=== PATIENT | male | born 1960 | race Caucasian/White ===

== ENCOUNTER 2016-09-06 14:55 | Emergency (ER) | payer OTHER ==
[~2016-09-06] VITALS: Ht 170.2 cm; Wt 95.0 kg
[~2016-09-06 14:55] MED LIST: AMLODIPINE BESY10 MG PO; ASPIR 8181 M1 PO; CATAPRES0.2 MG PO; CRESTOR10 MG PO; FISH OIL500 MG PO; LISINOPRIL10 MG PO; NAPROSYN500 MG PO; NORVASC10 MG PO; PREDNISONE20 MG PO; PRINIVIL10 MG PO; SALINE EYE; SIMVASTATIN20 MG PO; ST. JOSEPH ASPI81 MG PO
[2016-09-06 15:52] LABS: ADD MIUA? YES; BILIRUBIN NEGATIVE; BLOOD NEGATIVE; COLOR YELLOW ((YELLOW)); GLUCOSE (STRIP) 150; KETONES 5; LEUKOCYTES NEGATIVE; NITRITE NEGATIVE; PROTEIN (STRIP) 100; SPECIFIC GRAVITY 1.029 (1.000-1.030)
[2016-09-06 15:52] LABS: HEMATOCRIT 51.5 % (38.0-50.0); MCH 28.3 PG (29.0-34.0); MCHC 33.2 G/DL (30.0-36.0); MCV 85.1 FL (86-99); MEAN PLAT.VOLUME 10.2 uM^3 (9.0-12.4); PLATELET COUNT 110 K/uL (156-360); RBC DIS.WIDTH-CV 13.2 % (11.8-14.6); RBC DIS.WIDTH-SD 40.8 % (39-53); RED BLOOD COUNT 6.05 M/uL (4.00-5.50); WHITE BLOOD COUNT 3.8 K/uL (4.1-10.2)
[2016-09-06 16:01] LABS: BACTERIA NONE SEEN /HPF; EPITHELIAL CELLS NONE SEEN /HPF; MUCUS TRACE /LPF; RED BLOOD CELLS 0-5 /HPF (0-5); UCUL ADDED? NO; WHITE BLOOD CELLS 0-5 /HPF (0-5)
[2016-09-06 16:06] LABS: CHLORIDE 103 mEq/L (99-109); SODIUM 136 mEq/L (136-147)
[2016-09-06 16:08] LABS: GLUCOSE 140 mg/dL (70-99)
[2016-09-06 16:10] LABS: ANION GAP 10 MEQ/L (2-14); TOTAL BILIRUBIN 0.9 mg/dL (0.0-1.0)
[2016-09-06 16:12] LABS: ALKALINE PHOSPHATASE 98 IU/L (3-129); GFR ESTIMATE (CALCULATED) > 59 mL/min/
[2016-09-06 16:13] LABS: UREA NITROGEN (BUN) 19 mg/dL (9-23)
[2016-09-06] MEDS ORDERED: ZOFRAN ODT4 MG PO (18:52)
[2016-09-06 19:42] VITALS: BP 144/78
== END 2016-09-06 19:42 | disposition home or self-care (01) ==
LOC: EME 14:55
DX: K52.9 Noninfective gastroenteritis and colitis, unspecified (principal); I10 Essential (primary) hypertension; Z87.442 Personal history of urinary calculi; Z86.73 Personal history of transient ischemic attack (TIA), and cerebral infarction without residual deficits; Z79.82 Long term (current) use of aspirin
CPT/HCPCS: 74020; 80053; 81003; 85027; 99281; 99284

== ENCOUNTER 2017-02-24 16:00 | Emergency (ER) | payer OTHER ==
[~2017-02-24] VITALS: Ht 172.7 cm; Wt 94.0 kg
[~2017-02-24 16:00] MED LIST changes: +ZOFRAN ODT4 MG PO
[2017-02-24] MEDS ORDERED: FLONASE16 G1 BOTH NARES (18:43)
[2017-02-24 18:59] VITALS: BP 168/98
== END 2017-02-24 19:01 | disposition home or self-care (01) ==
LOC: EME 16:00
DX: J01.90 Acute sinusitis, unspecified (principal); R07.9 Chest pain, unspecified; F41.9 Anxiety disorder, unspecified; I10 Essential (primary) hypertension; Z86.73 Personal history of transient ischemic attack (TIA), and cerebral infarction without residual deficits; Z87.442 Personal history of urinary calculi
CPT/HCPCS: 93005; 99281; 99283

== ENCOUNTER 2017-08-06 14:21 | Emergency (ER) | payer OTHER ==
[~2017-08-06] VITALS: Ht 170.2 cm; Wt 94.9 kg
[~2017-08-06 14:21] MED LIST changes: +FLONASE16 G1 BOTH NARES
[2017-08-06 16:52] LABS: HEMATOCRIT 48.1 % (38.0-50.0); HEMOGLOBIN 16.9 G/DL (12.5-16.6); MCH 29.8 PG (29.0-34.0); MCHC 35.1 G/DL (30.0-36.0); MCV 84.8 FL (86-99); PLATELET COUNT 117 K/uL (156-360); RBC DIS.WIDTH-CV 13.6 % (11.8-14.6); RBC DIS.WIDTH-SD 41.7 % (39-53); RED BLOOD COUNT 5.67 M/uL (4.00-5.50); WHITE BLOOD COUNT 6.9 K/uL (4.1-10.2)
[2017-08-06 17:04] LABS: CHLORIDE 103 mEq/L (99-109); POTASSIUM 4.1 mEq/L (3.7-5.4); SODIUM 135 mEq/L (136-147)
[2017-08-06 17:05] LABS: GLUCOSE 224 mg/dL (70-99)
[2017-08-06 17:09] LABS: GFR ESTIMATE (CALCULATED) > 59 mL/min/ (58.99-99999)
[2017-08-06 17:10] LABS: UREA NITROGEN (BUN) 20 mg/dL (9-23)
[2017-08-06 17:16] LABS: TROP-I INTERPRETATION NEGATIVE; TROPONIN-I < 0.01 ng/mL (0.0-0.30)
[2017-08-06 19:55] VITALS: BP 179/98
== END 2017-08-06 19:55 | disposition home or self-care (01) ==
LOC: EME 14:21
PROVIDERS: Physician Assistant Medical
DX: R07.9 Chest pain, unspecified (principal); R20.2 Paresthesia of skin; I10 Essential (primary) hypertension; Z86.73 Personal history of transient ischemic attack (TIA), and cerebral infarction without residual deficits; Z82.49 Family history of ischemic heart disease and other diseases of the circulatory system; F41.9 Anxiety disorder, unspecified; F32.9 Major depressive disorder, single episode, unspecified
CPT/HCPCS: 70450; 71046; 80048; 84484; 85027; 93005; 99281; 99285

== ENCOUNTER 2017-11-16 12:39 | Emergency (ER) | payer OTHER ==
[~2017-11-16] VITALS: Ht 175.3 cm; Wt 92.5 kg
[2017-11-16 15:05] VITALS: BP 165/90
== END 2017-11-16 15:05 | disposition home or self-care (01) ==
LOC: EME 12:39
DX: F32.9 Major depressive disorder, single episode, unspecified (principal); F41.9 Anxiety disorder, unspecified; I10 Essential (primary) hypertension; Z79.82 Long term (current) use of aspirin; Z86.73 Personal history of transient ischemic attack (TIA), and cerebral infarction without residual deficits; Z87.442 Personal history of urinary calculi; Z90.49 Acquired absence of other specified parts of digestive tract; Z88.8 Allergy status to other drugs, medicaments and biological substances
CPT/HCPCS: 80053; 81003; 85027; 90839; 99281; 99284; G0480

== ENCOUNTER 2017-11-24 07:53 | Emergency (ER) | payer OTHER ==
[~2017-11-24] VITALS: Ht 172.7 cm; Wt 92.7 kg
[2017-11-24 08:41] LABS: BASOPHIL (%) 0.6 % (0-1); EOSINOPHIL (%) 1.5 % (0-5); EOSINOPHIL COUNT 0.1 K/uL (0-0.3); HEMATOCRIT 48.1 % (38.0-50.0); HEMOGLOBIN 16.4 G/DL (12.5-16.6); IMMATURE GRANULOCYTE (%) 0.6 % (0.0-0.7); LYMPHOCYTE (%) 19.4 % (15-42); MCH 29.4 PG (29.0-34.0); MCHC 34.1 G/DL (30.0-36.0); MCV 86.2 FL (86-99); MONOCYTE (%) 7.1 % (3-12); MONOCYTE COUNT 0.4 K/uL (0-0.8); NEUTROPHIL (%) 70.8 % (45-76); NEUTROPHIL COUNT 3.8 K/uL (1.8-6.4); PLATELET COUNT 116 K/uL (156-360); RBC DIS.WIDTH-CV 13.4 % (11.8-14.6); RBC DIS.WIDTH-SD 41.4 % (39-53); RED BLOOD COUNT 5.58 M/uL (4.00-5.50); WHITE BLOOD COUNT 5.4 K/uL (4.1-10.2)
[2017-11-24 08:42] LABS: APPEARANCE CLEAR ((CLEAR)); BILIRUBIN NEGATIVE; BLOOD NEGATIVE; COLOR STRAW ((YELLOW)); GLUCOSE (STRIP) >=500; KETONES NEGATIVE; LEUKOCYTES NEGATIVE; NITRITE NEGATIVE; PROTEIN (STRIP) NEGATIVE; SPECIFIC GRAVITY 1.027 (1.000-1.030); UROBILINOGEN 0.2 MG/DL (0.2-1.0)
[2017-11-24 08:55] LABS: AMPHETAMINE NEGATIVE (500 ng/mL); BARBITURATES NEGATIVE (200 ng/mL); BENZODIAZEPINES NEGATIVE (150 ng/mL); BUPRENORPHINE NEGATIVE (10 ng/mL); COCAINE NEGATIVE (150 ng/mL); METHADONE NEGATIVE (200 ng/mL); METHAMPHETAMINE NEGATIVE (500 ng/mL); OPIATES (MORPHINE) NEGATIVE (100 ng/mL); OXYCODONE NEGATIVE (100 ng/mL); PHENCYCLIDINE NEGATIVE (25 ng/mL); PROPOXYPHENE NEGATIVE (300 ng/mL); THC CANNABINOIDS NEGATIVE (50 ng/mL); TRICYCLIC ANTIDEPRESSANTS NEGATIVE (300 ng/mL)
[2017-11-24 09:03] LABS: CHLORIDE 99 mEq/L (99-109); POTASSIUM 3.8 mEq/L (3.7-5.4); SODIUM 133 mEq/L (136-147)
[2017-11-24 09:05] LABS: GLUCOSE 393 mg/dL (70-99)
[2017-11-24 09:08] LABS: SERUM ETHYL ALCOHOL < 10 mg/dL
[2017-11-24 09:09] LABS: GFR ESTIMATE (CALCULATED) > 59 mL/min/ (58.99-99999)
[2017-11-24 09:10] LABS: UREA NITROGEN (BUN) 16 mg/dL (9-23)
[2017-11-24 09:37] VITALS: BP 162/99
== END 2017-11-24 09:38 | disposition home or self-care (01) ==
LOC: EME 07:53
PROVIDERS: Emergency Medicine
DX: F32.9 Major depressive disorder, single episode, unspecified (principal); F41.9 Anxiety disorder, unspecified; I10 Essential (primary) hypertension; J30.9 Allergic rhinitis, unspecified; Z79.82 Long term (current) use of aspirin; Z90.49 Acquired absence of other specified parts of digestive tract; Z86.73 Personal history of transient ischemic attack (TIA), and cerebral infarction without residual deficits; Z87.442 Personal history of urinary calculi; Z88.8 Allergy status to other drugs, medicaments and biological substances
CPT/HCPCS: 80048; 81003; 85025; 90839; 99281; 99283; G0480

== ENCOUNTER 2017-12-03 16:28 | Inpatient (IN) | payer OTHER ==
[~2017-12-03] VITALS: Ht 172.7 cm; Wt 96.6 kg
[2017-12-03 18:56] LABS: BASOPHIL (%) 0.6 % (0-1); EOSINOPHIL (%) 1.1 % (0-5); EOSINOPHIL COUNT 0.1 K/uL (0-0.3); HEMATOCRIT 46.9 % (38.0-50.0); HEMOGLOBIN 16.3 G/DL (12.5-16.6); IMMATURE GRANULOCYTE (%) 0.4 % (0.0-0.7); LYMPHOCYTE (%) 23.7 % (15-42); LYMPHOCYTE COUNT 1.7 K/uL (1.0-2.8); MCH 29.7 PG (29.0-34.0); MCHC 34.8 G/DL (30.0-36.0); MCV 85.6 FL (86-99); MONOCYTE (%) 6.9 % (3-12); MONOCYTE COUNT 0.5 K/uL (0-0.8); NEUTROPHIL (%) 67.3 % (45-76); NEUTROPHIL COUNT 4.8 K/uL (1.8-6.4); PLATELET COUNT 120 K/uL (156-360); RBC DIS.WIDTH-CV 13.2 % (11.8-14.6); RBC DIS.WIDTH-SD 41.2 % (39-53); RED BLOOD COUNT 5.48 M/uL (4.00-5.50); WHITE BLOOD COUNT 7.1 K/uL (4.1-10.2)
[2017-12-03 19:04] LABS: PTT 29.4 SEC (25-37)
[2017-12-03 19:05] LABS: CHLORIDE 103 mEq/L (99-109); POTASSIUM 3.7 mEq/L (3.7-5.4); SODIUM 135 mEq/L (136-147)
[2017-12-03 19:07] LABS: GLUCOSE 261 mg/dL (70-99)
[2017-12-03 19:11] LABS: CREATININE 0.9 mg/dL (0.6-1.3); GFR ESTIMATE (CALCULATED) > 59 mL/min/ (58.99-99999)
[2017-12-03 19:12] LABS: UREA NITROGEN (BUN) 16 mg/dL (9-23)
[2017-12-03 20:06] LABS: HDL CHOLESTEROL 33 MG/DL (Desirable>=40); NON-HDL CHOLESTEROL 141 mg/dL (Desirable<160); TOTAL CHOLESTEROL 174 mg/dL (Desirable<200); TRIGLYCERIDES 535 MG/DL (Normal: <150)
[2017-12-03 23:58] LABS: HEMATOCRIT 43.4 % (38.0-50.0); MCH 29.9 PG (29.0-34.0); MCHC 34.6 G/DL (30.0-36.0); MCV 86.5 FL (86-99); PLATELET COUNT 112 K/uL (156-360); RBC DIS.WIDTH-CV 13.3 % (11.8-14.6); RBC DIS.WIDTH-SD 41.3 % (39-53); RED BLOOD COUNT 5.02 M/uL (4.00-5.50); WHITE BLOOD COUNT 6.5 K/uL (4.1-10.2)
[2017-12-04 00:10] VITALS: BP 180/76
[2017-12-04 00:57] LABS: TROP-I INTERPRETATION NEGATIVE; TROPONIN-I < 0.01 ng/mL (0.0-0.30)
[2017-12-04 01:09] LABS: APPEARANCE CLEAR ((CLEAR)); BILIRUBIN NEGATIVE; BLOOD NEGATIVE; COLOR YELLOW ((YELLOW)); GLUCOSE (STRIP) >=500; KETONES NEGATIVE; LEUKOCYTES NEGATIVE; NITRITE NEGATIVE; PROTEIN (STRIP) NEGATIVE; UCUL ADDED? NO; UROBILINOGEN 0.2 MG/DL (0.2-1.0)
[2017-12-04 01:40] LABS: BENZODIAZEPINES, URINE SCREEN Negative (200 ng/mL)
[2017-12-04 02:38] VITALS: BP 162/84
[2017-12-04 02:40] LABS: ERTH.SED.RATE 31 MM/HR (0-20)
[2017-12-04 04:17] VITALS: BP 138/76
[2017-12-04 06:37] LABS: TROP-I INTERPRETATION NEGATIVE; TROPONIN-I < 0.01 ng/mL (0.0-0.30)
[2017-12-04 07:38] VITALS: BP 189/91
[2017-12-04 10:00] VITALS: BP 145/78
[2017-12-04 10:55] LABS: HEMOGLOBIN A1c (GLYCOHEMOGLOB) 9.8 % (Below 5.7)
[2017-12-04] MEDS ORDERED: AMLODIPINE BESYL5 MG PO (12:35)
[2017-12-04] MEDS ORDERED: ESCITALOPRAM OX20 MG PO (12:36)
[2017-12-04] MEDS ORDERED: ALLERGY RELIE15.8 ML BOTH NARES (12:36)
[2017-12-04] MEDS ORDERED: ARIPIPRAZOLE5 MG PO (12:36)
[2017-12-04] MEDS ORDERED: IBUPROFEN200 M1 PO (12:37)
[2017-12-04] MEDS ORDERED: LISINOPRIL20 MG PO (12:37)
[2017-12-04] MEDS ORDERED: HYDROXYZINE HCL25 MG PO (12:37)
[2017-12-04 12:55] LABS: TROP-I INTERPRETATION NEGATIVE; TROPONIN-I < 0.01 ng/mL (0.0-0.30)
[2017-12-04] MEDS ORDERED: PRAVASTATIN SOD80 MG PO (13:33)
[2017-12-04] MEDS ORDERED: GLIPIZIDE5 MG PO (13:35)
[2017-12-04] MEDS ORDERED: ASPIR 8181 M1 PO (13:35)
[2017-12-04] MEDS ORDERED: METFORMIN HCL1000 MG PO (13:35)
[2017-12-04] MEDS ORDERED: PLAVIX75 MG PO (13:35)
== END 2017-12-04 13:57 | disposition home or self-care (01) | DRG 69 ==
LOC: EME 16:28 → EDOF 22:43 → 5SOUTH 22:43 → ENRESERV 22:46 → EDOF 12-04 00:07 → 5SOUTH 12-04 00:07
PROVIDERS: Emergency Medicine; Hospitalist
DX: G45.9 Transient cerebral ischemic attack, unspecified (principal); I95.9 Hypotension, unspecified; E11.65 Type 2 diabetes mellitus with hyperglycemia; I10 Essential (primary) hypertension; R20.0 Anesthesia of skin; R47.1 Dysarthria and anarthria; F31.9 Bipolar disorder, unspecified; Z86.73 Personal history of transient ischemic attack (TIA), and cerebral infarction without residual deficits; E78.5 Hyperlipidemia, unspecified; Z79.84 Long term (current) use of oral hypoglycemic drugs; E78.00 Pure hypercholesterolemia, unspecified; N39.0 Urinary tract infection, site not specified; R29.702 NIHSS score 2; Z79.82 Long term (current) use of aspirin; R53.1 Weakness
CPT/HCPCS: 70450; 70551; 80048; 80061; 80306 90; 81003; 83036; 84484; 85025; 85027; 85610; 85651; 85730; 93005; 93880; 99281; 99285; J7030

== ENCOUNTER 2018-01-19 13:03 | Emergency (ER) | payer OTHER ==
[~2018-01-19] VITALS: Ht 175.3 cm; Wt 93.6 kg
[~2018-01-19 13:03] MED LIST changes: +ALLERGY RELIE15.8 ML BOTH NARES; +AMLODIPINE BESYL5 MG PO; +ARIPIPRAZOLE5 MG PO; +ESCITALOPRAM OX20 MG PO; +GLIPIZIDE5 MG PO; +HYDROXYZINE HCL25 MG PO; +IBUPROFEN200 M1 PO; +LISINOPRIL20 MG PO; +METFORMIN HCL1000 MG PO; +PLAVIX75 MG PO; +PRAVASTATIN SOD80 MG PO
[2018-01-19 15:00] LABS: BASOPHIL (%) 0.4 % (0-1); EOSINOPHIL (%) 3.4 % (0-5); EOSINOPHIL COUNT 0.3 K/uL (0-0.3); HEMATOCRIT 47.3 % (38.0-50.0); HEMOGLOBIN 16.2 G/DL (12.5-16.6); IMMATURE GRANULOCYTE (%) 0.6 % (0.0-0.7); LYMPHOCYTE (%) 19.4 % (15-42); LYMPHOCYTE COUNT 1.4 K/uL (1.0-2.8); MCH 28.8 PG (29.0-34.0); MCHC 34.2 G/DL (30.0-36.0); MONOCYTE (%) 6.2 % (3-12); MONOCYTE COUNT 0.5 K/uL (0-0.8); NEUTROPHIL COUNT 5.1 K/uL (1.8-6.4); PLATELET COUNT 125 K/uL (156-360); RBC DIS.WIDTH-CV 13.3 % (11.8-14.6); RBC DIS.WIDTH-SD 40.1 % (39-53); RED BLOOD COUNT 5.63 M/uL (4.00-5.50); WHITE BLOOD COUNT 7.3 K/uL (4.1-10.2)
[2018-01-19 15:11] LABS: ALBUMIN 4.2 g/dL (3.2-4.8); CHLORIDE 102 mEq/L (99-109); POTASSIUM 3.9 mEq/L (3.7-5.4); SODIUM 137 mEq/L (136-147)
[2018-01-19 15:14] LABS: GLUCOSE 255 mg/dL (70-99); TOTAL PROTEIN 7.5 g/dL (6.4-8.3)
[2018-01-19 15:16] LABS: TOTAL BILIRUBIN 0.4 mg/dL (0.0-1.0)
[2018-01-19 15:17] LABS: ALKALINE PHOSPHATASE 89 IU/L (3-129); CREATININE 1.1 mg/dL (0.6-1.3); GFR ESTIMATE (CALCULATED) > 59 mL/min/ (58.99-99999)
[2018-01-19 15:18] LABS: UREA NITROGEN (BUN) 13 mg/dL (9-23)
[2018-01-19 15:19] LABS: AST (GOT) 32 IU/L (2-34)
[2018-01-19 15:20] LABS: ALT (GPT) 40 IU/L (3-49)
[2018-01-19 15:21] LABS: LIPASE 60 U/L (1.0-51.0)
[2018-01-19 15:54] LABS: APPEARANCE CLEAR ((CLEAR)); BILIRUBIN NEGATIVE; BLOOD NEGATIVE; COLOR STRAW ((YELLOW)); GLUCOSE (STRIP) >=500; KETONES NEGATIVE; LEUKOCYTES NEGATIVE; NITRITE NEGATIVE; PROTEIN (STRIP) NEGATIVE; SPECIFIC GRAVITY 1.015 (1.000-1.030); UCUL ADDED? NO; UROBILINOGEN 0.2 MG/DL (0.2-1.0)
[2018-01-19 16:22] VITALS: BP 128/76
== END 2018-01-19 16:22 | disposition home or self-care (01) ==
LOC: EME 13:03
PROVIDERS: Emergency Medicine
DX: E86.0 Dehydration (principal); K52.9 Noninfective gastroenteritis and colitis, unspecified; I10 Essential (primary) hypertension; E11.40 Type 2 diabetes mellitus with diabetic neuropathy, unspecified; F32.9 Major depressive disorder, single episode, unspecified; F41.9 Anxiety disorder, unspecified; Z86.73 Personal history of transient ischemic attack (TIA), and cerebral infarction without residual deficits
CPT/HCPCS: 80053; 81003; 83690; 85025; 99281; 99284; J7030